=== PATIENT | female | born 1975 | race Caucasian/White ===

== ENCOUNTER → 2018-11-06 | Outpatient (CLI) | payer OTHER ==
--- NOTE | 2018-11-06 15:05 | RADIOLOGY REPORT (SQ) ---
EXAM DESCRIPTION: ANKLE RIGHT COMPLETE COMPLETED DATE/TIME: 11/06/2018 1:26 pm REASON FOR STUDY: INJURY OF RT ANKLE S99.911A UNSPECIFIED INJURY OF RIGHT ANKLE, INITIAL ENCOUNTE COMPARISON: None. NUMBER OF VIEWS: Three views. TECHNIQUE: AP, lateral, and oblique radiographic images acquired of the right ankle. LIMITATIONS: None. FINDINGS: MINERALIZATION: Normal. BONES: No acute fracture or dislocation. No worrisome bone lesions. Small plantar calcaneal spur JOINTS: No ankle joint effusions. Normal alignment of the ankle mortise SOFT TISSUES: No soft tissue swelling. No foreign body. OTHER: No other significant finding. IMPRESSION: NEGATIVE STUDY OF THE RIGHT ANKLE. NO RADIOGRAPHIC EVIDENCE OF ACUTE INJURY. TECHNICAL DOCUMENTATION: JOB ID: [id number]- All Rights Reserved Reading location - IP/workstation name: [email or web address]
== END ==
LOC: OD 13:11
PROVIDERS: ATTEND Nurse Practitioner Acute Care
DX: S99.911A Unspecified injury of right ankle, initial encounter (principal); X58.XXXA Exposure to other specified factors, initial encounter; Y93.9 Activity, unspecified; Y92.9 Unspecified place or not applicable

== ENCOUNTER 2019-05-15 21:53 | Emergency (ER) | payer OTHER ==
[2019-05-15 22:27] VITALS: BP 141/90
[2019-05-15] MEDS ORDERED: ACETAMINOPHEN 325 MG TABLET PO ONE (22:53)
--- NOTE | 2019-05-15 22:54 | ER Document Report ---
ED Medical Screen (RME) - General Chief Complaint: Epigastric Pain Stated Complaint: UPPER GASTRIC PAIN Time Seen by Provider: 05/15/19 22:50 Primary Care Provider: HIRAM YANG NP [Primary Care Provider] - Follow up as needed Notes: Patient is a 43-year-old female who presents the emerge department with a chief complaint of mid lower abdominal pain. She states that it is mainly in the mid lower area and it radiates to the right side to her back. Patient denies any fever. Last menstrual cycle was April 26. Patient is sexually active. Denies any dysuria. Exam: Soft mildly tender mid lower abdomen. TRAVEL OUTSIDE OF THE [place] IN LAST 30 DAYS: No - Related Data Allergies/Adverse Reactions: No Known Allergies Allergy (Unverified 07/12/11 15:20) Home Medications: antidepress. anxiety. ADD Past Medical History - Social History Chew tobacco use (# tins/day): No Frequency of alcohol use: None Drug Abuse: None, Marijuana Past Surgical History: Reports: Hx Gynecologic Surgery - BTL, Hx Tubal Ligation - Immunizations Hx Diphtheria, Pertussis, Tetanus Vaccination: Yes Physical Exam - Vital signs Vitals: Temp Pulse Resp BP Pulse Ox 97.8 F 72 12 141/90 H 100 05/15/19 22:24 05/15/19 22:24 05/15/19 22:24 05/15/19 22:24 05/15/19 22:24 Course - Vital Signs Vital signs: Temp Pulse Resp BP Pulse Ox 97.8 F 72 12 141/90 H 100 05/15/19 22:24 05/15/19 22:24 05/15/19 22:24 05/15/19 22:24 05/15/19 22:24 Doctor's Discharge - Discharge Referrals: HIRAM YANG NP [Primary Care Provider] - Follow up as needed
[2019-05-15 23:12] LABS: ABSOLUTE BASOPHILS # (AUTO) 0.1 10^3/uL (0.0-0.2); ABSOLUTE EOSINOPHILS # (AUTO) 0.1 10^3/uL (0.0-0.6); ABSOLUTE LYMPHOCYTES (AUTO) 3.4 10^3/uL (0.5-4.7); ABSOLUTE MONOCYTES (AUTO) 0.6 10^3/uL (0.1-1.4); ABSOLUTE NEUT (AUTO) 4.2 10^3/uL (1.7-8.2); BASOPHILS % (AUTO) 0.7 % (0-2); EOSINOPHILS % (AUTO) 1.6 % (0-6); HEMOGLOBIN 14.9 g/dL (12.0-15.5); LYMPHOCYTES % (AUTO) 40.5 % (13-45); MEAN CORPUSCULAR HEMOGLOBIN 32.9 pg (27.0-33.4); MEAN CORPUSCULAR HGB CONC 34.7 g/dL (32.0-36.0); MEAN CORPUSCULAR VOLUME 95 fl (80-97); MONOCYTES % (AUTO) 7.1 % (3-13); PLATELET COUNT 275 10^3/uL (150-450); RED BLOOD COUNT 4.54 10^6/uL (3.72-5.28); RED CELL DISTRIBUTION WIDTH 13.7 % (11.5-14.0); SEGMENTED NEUTROPHILS % (AUTO) 50.1 % (42-78); TOTAL CELLS COUNTED % (AUTO) 100 %; WHITE BLOOD COUNT 8.5 10^3/uL (4.0-10.5)
[2019-05-15 23:26] LABS: ALKALINE PHOSPHATASE 73 U/L (38-126); ANION GAP 9 (5-19); ASPARTATE AMINO TRANSFERASE 16 U/L (14-36); BILIRUBIN,DIRECT 0.1 mg/dL (0.0-0.4); BILIRUBIN,TOTAL 0.2 mg/dL (0.2-1.3); BLOOD UREA NITROGEN 9 mg/dL (7-20); CALCIUM 9.4 mg/dL (8.4-10.2); CARBON DIOXIDE 24 mmol/L (22-30); CHLORIDE 106 mmol/L (98-107); GLUCOSE 92 mg/dL (75-110); POTASSIUM 4.3 mmol/L (3.6-5.0); TOTAL PROTEIN 7.1 g/dL (6.3-8.2)
[2019-05-16 02:00] LABS: APPEARANCE,URINE SLIGHTLY-CLOUDY; BILIRUBIN,URINE NEGATIVE (NEGATIVE); COLOR,URINE YELLOW; GLUCOSE, URINE NEGATIVE (NEGATIVE); KETONES,URINE NEGATIVE (NEGATIVE); LEUKOCYTE ESTERASE,URINE MODERATE (NEGATIVE); NITRITE,URINE NEGATIVE (NEGATIVE); PROTEIN,URINE NEGATIVE (NEGATIVE); URINE SPECIFIC GRAVITY 1.016; UROBILINOGEN,URINE NEGATIVE mg/dL (<2.0)
== END 2019-05-16 02:09 | disposition left against medical advice (07) ==
LOC: ER 21:53
DX: R10.30 Lower abdominal pain, unspecified (principal); R10.819 Abdominal tenderness, unspecified site; F41.9 Anxiety disorder, unspecified; F98.8 Other specified behavioral and emotional disorders with onset usually occurring in childhood and adolescence; Z79.899 Other long term (current) drug therapy; Z98.51 Tubal ligation status
CPT/HCPCS: 36415; 80053; 81001; 83690; 85025; 99281

== ENCOUNTER 2020-04-12 23:25 | Emergency (ER) | payer OTHER ==
--- NOTE | 2020-04-12 23:47 | ER Document Report ---
ED Medical Screen (RME) - General Chief Complaint: Shoulder Injury Stated Complaint: SHOULDER/ARM INJURY Time Seen by Provider: 04/12/20 23:39 TRAVEL OUTSIDE OF THE [place] IN LAST 30 DAYS: No - HPI Notes: 04/12/20 23:46 44-year-old female to the emergency department with complaints of right shoulder injury that occurred just prior to arrival. She states she fell out of her bed and landed squarely on her elbow. She states that her shoulder and upper arm feel the strangest. She states she cannot move the arm and she has to support it herself. She took some Tylenol prior to arrival. She denies any other injuries. She did not hit her head. Medical screening exam is concerning for possible shoulder dislocation. X-rays have been ordered and charge nurse notified for bed placement. I performed a brief medical screening exam on the patient determined that the patient needs further evaluation and management by main side provider. I have placed initial orders to help expedite care. - Related Data Allergies/Adverse Reactions: No Known Allergies Allergy (Unverified 07/12/11 15:20) Past Medical History Past Surgical History: Reports: Hx Gynecologic Surgery - BTL, Hx Tubal Ligation - Immunizations Hx Diphtheria, Pertussis, Tetanus Vaccination: Yes Physical Exam - Vital signs Vitals: Temp Pulse Resp BP Pulse Ox 98.2 F 89 20 134/75 H 98 04/12/20 23:38 04/12/20 23:38 04/12/20 23:38 04/12/20 23:38 04/12/20 23:38 Course - Vital Signs Vital signs: Temp Pulse Resp BP Pulse Ox 98.2 F 89 20 134/75 H 98 04/12/20 23:38 04/12/20 23:38 04/12/20 23:38 04/12/20 23:38 04/12/20 23:38
[2020-04-13] MEDS ORDERED: PROPOFOL INJ 200 MG/20 ML VIAL IV ONE
[2020-04-13] MEDS ORDERED: MORPHINE SULFATE 10 MG/ML INJ IV ONE (00:01)
[2020-04-13] MEDS ORDERED: ONDANSETRON HCL INJ/PF 4 MG/2 ML SDV IV ONE (00:01)
--- NOTE | 2020-04-13 00:03 | ER Document Report ---
ED General - General Chief Complaint: Shoulder Injury Stated Complaint: SHOULDER/ARM INJURY Time Seen by Provider: 04/12/20 23:39 TRAVEL OUTSIDE OF THE [place] IN LAST 30 DAYS: No - HPI Patient complains to provider of: shoulder pain Notes: fell from bed onto right arm this evening and has had pain in shoulder since denies head injury or LOC no neck pain no numbness in arm no weakness in hand/elbow no fever/chills no h/o dislocation - Related Data Allergies/Adverse Reactions: No Known Allergies Allergy (Unverified 07/12/11 15:20) Past Medical History - Social History Smoking Status: Current Every Day Smoker Family History: Reviewed & Not Pertinent Past Surgical History: Reports: Hx Gynecologic Surgery - BTL, Hx Tubal Ligation - Immunizations Hx Diphtheria, Pertussis, Tetanus Vaccination: Yes Review of Systems - Review of Systems Constitutional: No symptoms reported EENT: No symptoms reported Cardiovascular: No symptoms reported Respiratory: No symptoms reported Gastrointestinal: No symptoms reported Genitourinary: No symptoms reported Female Genitourinary: No symptoms reported Musculoskeletal: Joint swelling, Other - shoulder pain Skin: No symptoms reported Hematologic/Lymphatic: No symptoms reported Neurological/Psychological: No symptoms reported Physical Exam - Vital signs Vitals: Temp Pulse Resp BP Pulse Ox 98.2 F 89 20 134/75 H 98 04/12/20 23:38 04/12/20 23:38 04/12/20 23:38 04/12/20 23:38 04/12/20 23:38 Interpretation: Normal - General General appearance: Appears well, Alert - HEENT Head: Normocephalic, Atraumatic Eyes: Normal Pupils: PERRL - Respiratory Respiratory status: No respiratory distress Chest status: Nontender Breath sounds: Normal Chest palpation: Normal - Cardiovascular Rhythm: Regular Heart sounds: Normal auscultation Murmur: No - Abdominal Inspection: Normal Distension: No distension Bowel sounds: Normal Tenderness: Nontender Organomegaly: No organomegaly - Back Back: Normal, Nontender - Extremities General upper extremity: Normal inspection, Nontender, Normal color, Normal ROM, Normal temperature General lower extremity: Normal inspection, Nontender, Normal color, Normal ROM, Normal temperature, Normal weight bearing. No: Lizzie's sign Notes: right shoulder tender to palpation, held at side. pulses/sensation intact - Neurological Neuro grossly intact: Yes Cognition: Normal Orientation: AAOx4 [place] Coma Scale Eye Opening: Spontaneous [place] Coma Scale Verbal: Oriented [place] Coma Scale Motor: Obeys Commands [place] Coma Scale Total: 15 Speech: Normal Motor strength normal: LUE, RUE, LLE, RLE Sensory: Normal - Psychological Associated symptoms: Normal affect, Normal mood - Skin Skin Temperature: Warm Skin Moisture: Dry Skin Color: Normal Course - Re-evaluation Re-evalutation: 04/13/20 00:02 xray right shoulder w/ dislocation will sedate and reduce 04/13/20 00:40 successful reduction dc w/ ortho follow up - Vital Signs Vital signs: Temp Pulse Resp BP Pulse Ox 98.2 F 89 20 134/75 H 98 04/12/20 23:38 04/12/20 23:38 04/12/20 23:38 04/12/20 23:38 04/12/20 23:38 - Diagnostic Test Radiology reviewed: Image reviewed Procedures - Conscious Sedation Conscious sedation Indication: shoulder dislocation Normal healthy pt.: P1. - ASA Classification Airway Evaluation: Normal anatomy Mallampati Classification: Class 1 Used during procedure: Suction available, IV access obtained, Pulse ox on pt., office administration instructor on pt. Medications administered: Diprivan Reversal agents: None I personally performed/intraservice time: Sedation, 30 min or less Complications: No - Immobilization Right Shoulder Pre-Proc Neuro Vasc Exam: Normal Immobilizer type: Shoulder immobilizer Performed by: Provider Post-Proc Neuro Vasc Exam: Normal Alignment checked and good: Yes - Joint Reduction/Fracture Care Right Shoulder Consent obtained: Yes Conscious sedation: Yes Pre-procedure NV exam: Yes Post-procedure NV exam: Yes Post-reduction x-ray: Joint reduced Reduction attempts: 1 Complications: No Discharge - Discharge Clinical Impression: Shoulder dislocation Qualifiers: Encounter type: initial encounter Laterality: right Qualified Code(s): S43.004A - Unspecified dislocation of right shoulder joint, initial encounter Condition: Stable Disposition: HOME, SELF-CARE Instructions: Shoulder Dislocation ([facility]) Additional Instructions: Call orthopedic provider for follow up Return to the ED with worsening symptoms or concerns Take hi dose ibuprofen for pain and apply ice to the shoulder to reduce inflammation Referrals: STEVEN SCRUGGS, [ACTIVE STAFF] - Follow up as needed
--- NOTE | 2020-04-13 00:22 | RADIOLOGY REPORT (SQ) ---
EXAM DESCRIPTION: XR SHOULDER 2 OR MORE VIEWS COMPLETED DATE/TME: 04/12/2020 23:44 CLINICAL HISTORY: 44 years, Female, possible shoulder dislocation COMPARISON: None. NUMBER OF VIEWS: 2 TECHNIQUE: 2 view right shoulder LIMITATIONS: None. FINDINGS: Anterior inferior dislocation of the humeral head relative to the bony glenoid. No acute fracture IMPRESSION: Shoulder dislocation as above copyright 2010 [employer] [place] [employer]- All Rights Reserved
[2020-04-13 01:05] VITALS: BP 138/80
--- NOTE | 2020-04-13 01:59 | RADIOLOGY REPORT (SQ) ---
EXAM DESCRIPTION: X-ray, two views of the right shoulder CLINICAL HISTORY: 44 years Female, post reduction COMPARISON: Radiographs of the right shoulder obtained 04/12/2020 FINDINGS: There is been reduction of the shoulder dislocation. There is a probable Hill-Sachs fracture involving the superior lateral humeral head. Scapula is intact. Ac joint is intact. Soft tissue edema is present. IMPRESSION: Interval reduction of shoulder dislocation. Probable Hill-Sachs fracture of the humeral head.
== END 2020-04-13 01:05 | disposition home or self-care (01) ==
LOC: ER 23:25
DX: S43.014A Anterior dislocation of right humerus, initial encounter (principal); S43.034A Inferior dislocation of right humerus, initial encounter; W06.XXXA Fall from bed, initial encounter; F17.200 Nicotine dependence, unspecified, uncomplicated
CPT/HCPCS: 99283; 99152; 96374; 96375; 73030 ×2; 23650; J2270; J2405; J2704